=== PATIENT | female | born 1975 | race American Indian/Alaskan Native ===

== ENCOUNTER 2017-08-14 15:23 | Emergency (ER) | payer MEDICAID, OTHER ==
[2017-08-14 15:24] VITALS: BMI 25.8
[2017-08-14 16:22] LABS: HCG,QUALITATIVE URINE NEGATIVE (NEGATIVE)
[2017-08-14 16:34] LABS: SQUAMOUS EPITHIAL 1 /hpf (0-5); URINE BACTERIA RARE (<OCC); URINE BILIRUBIN NEGATIVE (NEGATIVE); URINE BLOOD 3+ (NEGATIVE); URINE CLARITY Hazy (Clear); URINE COLOR Yellow (YELLOW); URINE GLUCOSE (UA) NORMAL (Normal); URINE LEUKOCYTE ESTERASE NEG Leu/uL (Negative); URINE PROTEIN 1+ mg/dL (NEGATIVE); URINE UROBILINOGEN NORMAL mg/dL (0.2-1.0)
[2017-08-14 16:42] LABS: INFLUENZA A B NEGATIVE FOR FLU A/B (NEGATIVE)
[2017-08-14] MEDS ORDERED: Sodium Chloride 0.9% 1,000 ML IV ONE (16:42)
[2017-08-14 17:04] LABS: BASO % 0.5 % (0.0-2.0); EOS % 0.2 % (0.0-4.0); HEMOGLOBIN 11.8 g/dL (11.0-16.0); LYMPH # 0.5 K/uL (1.0-4.3); LYMPH % 13.6 % (20.0-40.0); MEAN CORPUSCULAR HEMOGLOBIN 27.3 pg (27.0-31.0); MEAN CORPUSCULAR HGB CONC 33.9 g/dL (33.0-37.0); MEAN PLATELET VOLUME 9.6 fL (7.2-11.7); MONO # 0.1 K/uL (0.0-0.8); MONO % 3.1 % (0.0-10.0); NEUT # 2.7 K/uL (1.8-7.0); NEUT % 82.6 % (50.0-75.0); RBC 4.31 Mil/uL (3.80-5.20); RED CELL DISTRIBUTION WIDTH 14.7 % (11.5-14.5); WHITE BLOOD COUNT 3.3 K/uL (4.8-10.8)
[2017-08-14 17:10] LABS: MEAN CELL VOLUME 80.5 fL (81.0-99.0)
[2017-08-14 17:20] LABS: CALCIUM 8.2 mg/dl (8.6-10.4); GFR AFRICAN-AMERICAN > 60; GFR NON-AFRICAN AMERICAN > 60; LIPASE 176 U/L (23-300)
[2017-08-14 17:21] LABS: ALBUMIN 3.9 g/dL (3.5-5.0); ALT/SGPT 191 U/L (9-52); AST/SGOT 152 U/L (14-36); BLOOD UREA NITROGEN 9 mg/dL (7-17)
--- NOTE | 2017-08-14 17:21 | C.PDOC ---
History Of Present Illness 41 yo female w/o significant PMHx come in for evaluation of fever, malaise, bodyaches for past 5-6 days. Pt sts, intermittent epigastric and LLQ pain. Pt lyn, was seen at [facility] days ago, discharged with no Rx. Pt admits, recent travel " home [facility] few weeks ago". Otherwise,p t denies lethargy, dizziness , visual changes, neck pain, rash, cough, CP, SOB, dyspnea, palpitation, wheezing, V/D, UTi sx. Ambulatory in ED, not in any apparent distress. Pt lyn, was sent from [facility] now to ED for further evaluation. Time Seen by Provider: 08/14/17 15:50 Chief Complaint (Nursing): Flu-like Symptoms History Per: Patient Onset/Duration Of Symptoms: Gradual Past Medical History Reviewed: Historical Data, Nursing Documentation, Vital Signs Vital Signs: Last Vital Signs Temp 98.6 F 08/14/17 19:00 Pulse 87 08/14/17 19:00 Resp 16 08/14/17 19:00 BP 131/73 08/14/17 19:00 Pulse Ox 97 08/14/17 19:00 - Medical History PMH: No Chronic Diseases Denies: HTN Surgical History: No Surg Hx Family History: States: Unknown Family Hx - Social History Hx Tobacco Use: No Hx Alcohol Use: No (DENIES 08/14/17) Hx Substance Use: No - Immunization History Hx Tetanus Toxoid Vaccination: No Hx Influenza Vaccination: Yes Hx Pneumococcal Vaccination: No Review Of Systems Except As Marked, All Systems Reviewed And Found Negative. Constitutional: Positive for: Fever, Chills, Weakness, Malaise. Negative for: Weight loss Eyes: Negative for: Vision Change, Redness ENT: Positive for: Throat Pain. Negative for: Ear Pain, Ear Discharge, Nose Discharge, Nose Congestion Cardiovascular: Negative for: Chest Pain, Palpitations Respiratory: Negative for: Cough, Shortness of Breath, Wheezing Gastrointestinal: Positive for: Abdominal Pain. Negative for: Nausea, Vomiting , Diarrhea Genitourinary: Negative for: Dysuria, Frequency Musculoskeletal: Negative for: Neck Pain, Back Pain Skin: Negative for: Rash Neurological: Negative for: Weakness, Numbness, Altered Mental Status, Headache , Dizziness Physical Exam - Physical Exam Appears: Well, No Acute Distress Skin: Normal Color, Warm, Dry, No Rash Head: Normacephalic Eye(s): bilateral: PERRL Ear(s): Bilateral: Normal Nose: No Flaring, No Discharge Oral Mucosa: Moist, No Drooling, No Trismus Tongue: Normal Appearing Lips: Normal Appearing Throat: Erythema (mild B/L), No Exudate, No Drooling Neck: Normal, Trachea Midline, Supple, Other ((-) meningeal sign) Lymphatic: Adenopathy (mild B/L anterior cervical) Cardiovascular: Rhythm Regular, No Murmur, No JVD Respiratory: No Decreased Breath Sounds, No Accessory Muscle Use, No Stridor, No Wheezing Gastrointestinal/Abdominal: Soft, Tenderness (mod LLQ and mild epigastric), No Distention, No Guarding, No Rebound Back: No CVA Tenderness Extremity: Normal ROM, No Deformity, No Swelling Neurological/Psych: Oriented x3, Normal Speech ED Course And Treatment - Laboratory Results Result Diagrams: 08/14/17 17:01 08/14/17 17:01 Urine POC: Negative O2 Sat by Pulse Oximetry: 100 Pulse Ox Interpretation: Normal - CT Scan/US CT abd/pelvis Other Rad Studies (CT/US): Radiology Report Reviewed CT/US Interpretation: Creator : Jolene Daly. Dictator : Geremias Silverio MD. Brick Catcher : Labourers : Geremias Silverio MD. Approver2 : Report Date : 08/14/2017 18:22:41. My Comment : . PROCEDURE: CT Abdomen and Pelvis with contrast. HISTORY: Left lower quadrant pain. Negative test (concurrent with this examination). COMPARISON: None. TECHNIQUE: Contrast dose: 100 cc Visipaque 320. Radiation dose: Total exam DLP = 508.66 mGy-cm. This CT exam was performed using one or more of the following dose reduction techniques: Automated exposure control, adjustment of the mA and/or kV according to patient size, and/or use of iterative reconstruction technique. FINDINGS: LOWER THORAX: Unremarkable. LIVER: Hepatic steatosis. No focal masses. No intrahepatic bile duct dilatation or perihepatic ascites. GALLBLADDER AND BILE DUCTS: Unremarkable. PANCREAS: Unremarkable. No gross lesion or ductal dilatation. SPLEEN: Unremarkable. ADRENALS: Unremarkable. No mass. KIDNEYS AND URETERS: Unremarkable. No hydronephrosis. No solid mass. VASCULATURE: Unremarkable. No aortic aneurysm. BOWEL: Unremarkable. No obstruction. No gross mural thickening. APPENDIX: Normal appendix. PERITONEUM: Unremarkable. No free fluid. No free air. LYMPH NODES: Unremarkable. No enlarged lymph nodes. BLADDER: Unremarkable. REPRODUCTIVE: Unremarkable. BONES: No acute fracture. OTHER FINDINGS: None. IMPRESSION: No significant or acute findings to account for/ related to the clinical presentation. Additional benign and/or incidental findings described above. Progress Note: Pt remained stable during the Ed evaluation. Pt reports mod improveemnt in sx. On re-eval, pt is afebrile, hemodynamicalys table. NOn- toxic. ENT: no acute findings. neck: Supple, (-) meningeal sign. Lungs: CTA B /L, BS equal B/L. Abd: benign, (-) guarding, (-) rebound. back: (-) CVA tenderness. Neurologicaly intact. Case discussed with , blood work and imaging results review. HIgh LFT noted, hepatitis profile- negative. CT ab/ dplevis- no acute findings. As per , pt is stable for discharge withg outpt f/u in clinic in 1-2 days. Results review and discussed with patient. Ref to F/u with Clinic in 1-2 days, return to ED at any time if any worsening or new changes. Disposition Counseled Patient/Family Regarding: Studies Performed, Diagnosis, Need For Followup - Disposition Referrals: at [facility] [Outside] Disposition: HOME/ ROUTINE Disposition Time: 18:54 Condition: STABLE Additional Instructions: FOLLOW UP WITH MEDICAL CLINIC TOMORROW FOR RE-EVALUATION. ENCOURAGE FLUIDS IBUPROFEN NEED FOR FEVER RETURN TO ED IF ANY WORSENING OR NEW CHANGES. Instructions: Fever of Unknown Origin, Liver Function Test Forms: [email or web address] ([email or web address]) - Clinical Impression Clinical Impression: Fever, Abnormal LFTs (liver function tests) Physician Patient Turnover Patient Signed Over To: Yamil Sears Handoff Comments: CT abd/pelvis, re-eval, dispo
[2017-08-14] MEDS ORDERED: Sodium Chloride 0.9% 1,000 ML ONE (17:24)
[2017-08-14] MEDS ORDERED: Iodixanol 320 MG/ML 100 ML BOTTLE IV ONE (17:40)
--- NOTE | 2017-08-14 18:39 | CT ---
PROCEDURE: CT Abdomen and Pelvis with contrast HISTORY: Left lower quadrant pain. Negative test (concurrent with this examination). COMPARISON: None. TECHNIQUE: Contrast dose: 100 cc Visipaque 320. Radiation dose: Total exam DLP = 508.66 mGy-cm. This CT exam was performed using one or more of the following dose reduction techniques: Automated exposure control, adjustment of the mA and/or kV according to patient size, and/or use of iterative reconstruction technique. FINDINGS: LOWER THORAX: Unremarkable. LIVER: Hepatic steatosis. No focal masses. No intrahepatic bile duct dilatation or perihepatic ascites. GALLBLADDER AND BILE DUCTS: Unremarkable. PANCREAS: Unremarkable. No gross lesion or ductal dilatation. SPLEEN: Unremarkable. ADRENALS: Unremarkable. No mass. KIDNEYS AND URETERS: Unremarkable. No hydronephrosis. No solid mass. VASCULATURE: Unremarkable. No aortic aneurysm. BOWEL: Unremarkable. No obstruction. No gross mural thickening. APPENDIX: Normal appendix. PERITONEUM: Unremarkable. No free fluid. No free air. LYMPH NODES: Unremarkable. No enlarged lymph nodes. BLADDER: Unremarkable. REPRODUCTIVE: Unremarkable. BONES: No acute fracture. OTHER FINDINGS: None. IMPRESSION: No significant or acute findings to account for/ related to the clinical presentation. Additional benign and/or incidental findings described above.
[2017-08-14 19:01] VITALS: BP 131/73; PULSE 87; RESP 16; TEMP 98.6
[2017-08-14 19:49] LABS: HEPATITIS B SURFACE AG Negative (NEGATIVE)
[2017-08-14 19:54] LABS: HEPATITIS A IGM NEGATIVE (NEGATIVE); HEPATITIS B CORE AB NEGATIVE (NEGATIVE)
[2017-08-14 20:06] LABS: HEPATITIS C ANTIBODY NEGATIVE (NEGATIVE)
[2017-08-15 12:11] VITALS: O2SAT 100
== END 2017-08-14 19:23 | disposition home or self-care (01) ==
LOC: C.ER 15:23
DX: R50.9 Fever, unspecified (principal); R94.5 Abnormal results of liver function studies
CPT/HCPCS: 74177; 80053; 80074; 81001; 82140; 83690; 84703; 85025; 86308; 87070; 87430; 87804; 96361; 96374; 96375; 99283; J2405; J7040; Q9967

== ENCOUNTER 2017-08-19 12:55 | Inpatient (IN) | payer MEDICAID ==
[2017-08-19 12:55] VITALS: BMI 25.8
--- NOTE | 2017-08-19 14:08 | C.PDOC ---
History Of Present Illness 41 y/o F presents from clinic with fever, chills. Patient was seen in this ED 5 days ago, work up largely negative other than elevated liver enzymes. She was seen in clinic earlier that day and the next day and then today. Upon her visit to clinic today, the physician found to the patient to have new nystagmus, general weakness, still with chills although fever resolved and feeling unsteady. The patient recently traveled from [facility]. Denies neck stiffness, photophobia, chest pain, rash. Time Seen by Provider: 08/19/17 13:15 Chief Complaint (Nursing): Medical Clearance Past Medical History Vital Signs: Last Vital Signs Temp 97.7 F 08/19/17 13:20 Pulse 86 08/19/17 13:20 Resp 18 08/19/17 13:20 BP 175/73 H 08/19/17 13:20 Pulse Ox 97 08/19/17 14:10 - Medical History PMH: Denies: HTN Family History: States: Unknown Family Hx - Social History Hx Tobacco Use: No Hx Alcohol Use: No (DENIES 08/14/17) Hx Substance Use: No - Immunization History Hx Tetanus Toxoid Vaccination: No Hx Influenza Vaccination: Yes Hx Pneumococcal Vaccination: No Review Of Systems Except As Marked, All Systems Reviewed And Found Negative. Cardiovascular: Negative for: Chest Pain Genitourinary: Negative for: Dysuria Physical Exam - Physical Exam Additional Physical Exam Comments: Gen: NAD head: NC/AT Eyes: Nystagmus ENT: MMM Neck: No rigidity Chest: No tenderness CV: Regular rate Lungs: CTA b/l Abd: Soft, NT Back: No CVA tenderness Skin: No rash Extremities: No edema Neuro: Alert, oriented x 3, CN II to XII intact, motor 5/5 x 4, sensation to light touch intact. ED Course And Treatment - Laboratory Results Result Diagrams: 08/19/17 14:09 08/19/17 14:09 O2 Sat by Pulse Oximetry: 97 Lumbar Puncture - Time Out Time Out: Side verified, Site verified, Patient ID confirmed, Sterile procedures obs. - Consent obtained Consent obtained: Written - Performed by Performed by: Mid-level Provider - Indications Indication(s): Suspected menigitis - Contraindications Contraindications: None - Patient Position Patient position: Sitting - Local Anesthetic Location: L4/L5 - Fluid Appearance Fluid Appearance: Clear - Post-procedure Post-procedure: No leak/bld from LP site, Dressing applied, Patient laid flat, Neurovascular status nml - CSF Studies CSF Studies: Cell count/diff, Glucose, Protein, LDH, culture/sensitivity, Antigens - Complications Complications: None - Patient tolerated procedure Patient tolerated procedure: Well Medical Decision Making Medical Decision Making: EKG Sinus rhythm, 52 bpm, no ST elevations CXR no consolidation. Hospitalist service saw patient in ED, will accept to their service and will contact neurology and ID for further recommendations. Disposition - Disposition Disposition: HOSPITALIZED Disposition Time: 15:23 Condition: FAIR - Clinical Impression Clinical Impression: Fever, Abnormal LFTs (liver function tests), Nystagmus
[2017-08-19 14:17] LABS: BASO # 0.1 K/uL (0.0-0.2); BASO % 0.7 % (0.0-2.0); EOS # 0.1 K/uL (0.0-0.7); EOS % 1.5 % (0.0-4.0); HEMOGLOBIN 12.1 g/dL (11.0-16.0); LYMPH # 1.6 K/uL (1.0-4.3); LYMPH % 22.4 % (20.0-40.0); MEAN CORPUSCULAR HEMOGLOBIN 27.1 pg (27.0-31.0); MEAN CORPUSCULAR HGB CONC 33.4 g/dL (33.0-37.0); MEAN PLATELET VOLUME 9.7 fL (7.2-11.7); MONO # 0.4 K/uL (0.0-0.8); MONO % 5.8 % (0.0-10.0); NEUT # 5.1 K/uL (1.8-7.0); NEUT % 69.6 % (50.0-75.0); NRBC % 0.1 % (0.0-2.0); RBC 4.46 Mil/uL (3.80-5.20); RED CELL DISTRIBUTION WIDTH 14.2 % (11.5-14.5)
[2017-08-19 14:21] LABS: WHITE BLOOD COUNT 7.3 K/uL (4.8-10.8)
[2017-08-19 14:31] LABS: INR 1.1; PROTHROMBIN TIME 12.3 SECONDS (9.7-12.2)
[2017-08-19 14:40] LABS: ALBUMIN 3.9 g/dL (3.5-5.0); ALT/SGPT 156 U/L (9-52); AST/SGOT 104 U/L (14-36); BLOOD UREA NITROGEN 10 mg/dL (7-17); CALCIUM 9.2 mg/dl (8.6-10.4); GFR AFRICAN-AMERICAN > 60; GFR NON-AFRICAN AMERICAN > 60; LIPASE 175 U/L (23-300)
--- NOTE | 2017-08-19 15:20 | RAD ---
HISTORY: chills COMPARISON: No prior. FINDINGS: LUNGS: No active pulmonary disease. PLEURA: No significant pleural effusion identified, no pneumothorax apparent. CARDIOVASCULAR: No radiographic findings to suggest acute or significant cardiovascular disease. OSSEOUS STRUCTURES: No significant abnormalities. VISUALIZED UPPER ABDOMEN: Normal. OTHER FINDINGS: None. IMPRESSION: No active disease.
[2017-08-19 15:39] LABS: FLUID TYPE SPINAL FLUID
--- NOTE | 2017-08-19 16:00 | CP.PCM.HP ---
<Dago MASPam - Last Filed: 08/19/17 16:11> History of Present Illness - History of Present Illness History of Present Illness: CC: "I feel unsteady" Patient is a 41 year old female with PMHx heart murmur who presents to the ED after being sent from the [facility] for recent history of fever and new neurological symptoms. Patient traveled to [facility] 07/26-07/29 and during trip and on initial return [place] felt normal at her baseline. Patient reports that on she began to have a fever, headache, and generalized malaise. She reports that her 12 year old daughter also had similar symptoms, but she recovered quickly. Patient went to [facility] on 08/12/17 due to continued fever and generalized weakness. Labwork done at [facility] showed low WBC count 2.2 and elevated LFTs. Patient was discharged home with supportive care. Patient presented to the [facility] at [facility] on 08/14/17 for follow up. She was referred to the ED during that encounter. Blood work done in the ED on 08/14/17 showed negative monospot, influenza, hepatitis, HIV, group A strep. LFTs were elevated but decreased as compared to studies from [facility]. Patient followed up with [facility] again on 08/15/17 with fever. Additional blood work studies were ordered at that time. Patient' s fever broke Friday08/15/17 and she reports feeling better overall since then. She reports that on Thursday 08/17 she began having blurred vision, feeling unsteady on her feet, and weakness. She also reports photophobia. She reports one episode of nausea with vomiting yesterday. She reports increased thirst for the past few days. 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 absent: Chills, Fever (was present for 6 days prior to arrival, resolved recently) - EENT Eyes: Blurred Vision, Photophobia. absent: Diplopia, Pain, Loss of Vision Nose/Mouth/Throat: absent: Nasal Congestion, Bleeding Gums, Sore Throat, Tongue Swelling - Cardiovascular Cardiovascular: absent: Chest Pain, Chest Pain at Rest, Diaphoresis, Dyspnea, Edema, Leg Edema, Lightheadedness, Orthopnea, Palpitations, Rapid Heart Rate - Respiratory Respiratory: absent: Cough, Dyspnea - Gastrointestinal Gastrointestinal: Nausea, Vomiting. absent: Abdominal Pain, Constipation, Diarrhea, Loose Stools - Genitourinary Genitourinary: absent: Difficulty Urinating, Dysuria - Musculoskeletal Musculoskeletal: absent: Back Pain, Muscle Cramps, Muscle Weakness, Stiffness - Integumentary Integumentary: absent: Bleeding Lesions, Erythema, Rash, Unusual Bruising, Jaundice - Neurological Neurological: Disequilibrium, Dizziness, Lack of Coordination. absent: Abnormal Speech, Focal Weakness, Frequent Falls, Headaches, Memory Loss, Radicular Pain, Sensory Deficit, Syncope, Tingling, Tremor, Vertigo - Endocrine Endocrine: Polydipsia. absent: Palpitations Past Patient History - Infectious Disease Hx of Infectious Diseases: None - Past Social History Smoking Status: Never Smoked - CARDIAC Hx Hypertension: No - PSYCHIATRIC Hx Substance Use: No - SURGICAL HISTORY Hx Surgeries: Yes Hx Vascular Surgery: Yes Other/Comment: Hyperhydrosis - ANESTHESIA Hx Anesthesia: Yes Hx Anesthesia Reactions: No Meds Allergies/Adverse Reactions: Allergies Allergy/AdvReac Type Severity Reaction Status Date / Time peanut Allergy ANAPHYLAXIS Verified 08/19/17 13:20 Penicillins Allergy ANAPHYLAXIS Verified 08/19/17 13:20 Physical Exam - Constitutional Appears: Non-toxic, No Acute Distress - Head Exam Head Exam: ATRAUMATIC, NORMOCEPHALIC - Eye Exam Eye Exam: EOMI, Nystagmus (horizontal) Pupil Exam: PERRL - ENT Exam ENT Exam: Mucous Membranes Moist - Neck Exam Neck exam: Positive for: Full Rom. Negative for: Lymphadenopathy, Meningismus Additional comments: Negative Budzinski sign, negative Brudzinski sign, no nuchal rigidity - Respiratory Exam Respiratory Exam: Clear to Auscultation Bilateral, NORMAL BREATHING PATTERN. absent: Rales, Rhonchi, Wheezes - Cardiovascular Exam Cardiovascular Exam: REGULAR RHYTHM, +S1, +S2 - GI/Abdominal Exam GI & Abdominal Exam: Normal Bowel Sounds, Soft. absent: Distended, Firm - Extremities Exam Extremities exam: Positive for: normal inspection. Negative for: calf tenderness, pedal edema - Back Exam Back exam: NORMAL INSPECTION. absent: CVA tenderness (L), CVA tenderness (R), paraspinal tenderness, rash noted - Neurological Exam Neurological exam: Alert, CN II-XII Intact, Oriented x3 - Expanded Neurological Exam Expanded Speech: Fluid Speech Cranial nerves: EOM's Intact: Normal, Facial Sensation: Normal Ataxia: No Cerebellar Function: Finger to Nose: Normal, Romberg: Normal Upper motor neuron: Babinski Sign: Normal, Pronator Drift: Normal Sensory exam: Lower Extremity Light Touch: Normal, Upper Extremity Light Touch: Normal Neuro motor strength exam: Left Upper Extremity: 5, Right Upper Extremity: 5, Left Lower Extremity: 5, Right Lower Extremity: 5 DTR: Achilles Tendon Left: 2+, Achilles Tendon Right: 2+, Bicep Left: 2+, Bicep Right: 2+, Brachioradialis Left: 2+, Brachioradialis Right: 2+, Patellar Left: 2 +, Patellar Right: 2+ Coma Scale Eye Opening: SPONTANEOUS Coma Scale Motor Response: OBEYS COMMANDS Coma Scale Verbal: Oriented Coma Scale Total: 15 - Psychiatric Exam Psychiatric exam: Normal Affect - Skin Skin Exam: Normal Color, Warm Additional comments: no rash, no petechiae Results - Vital Signs Recent Vital Signs: Last Vital Signs Temp 97.7 F 08/19/17 13:20 Pulse 86 08/19/17 13:20 Resp 18 08/19/17 13:20 BP 175/73 H 08/19/17 13:20 Pulse Ox 97 08/19/17 15:24 - Labs Result Diagrams: 08/19/17 14:09 08/19/17 14:09 Labs: Laboratory Results - last 24 hr 08/19/17 08/19/17 08/19/17 13:08 14:09 14:09 WBC 7.3 D RBC 4.46 Hgb 12.1 Hct 36.1 MCV 81.0 MCH 27.1 MCHC 33.4 RDW 14.2 Plt Count 375 D MPV 9.7 Neut % (Auto) 69.6 Lymph % (Auto) 22.4 Churchill % (Auto) 5.8 Eos % (Auto) 1.5 Baso % (Auto) 0.7 Neut # (Auto) 5.1 Lymph # (Auto) 1.6 Churchill # (Auto) 0.4 Eos # (Auto) 0.1 Baso # (Auto) 0.1 PT INR APTT Sodium 139 Potassium 3.3 L Chloride 95 L Carbon Dioxide 31 H Anion Gap 17 BUN 10 Creatinine 0.6 L Est GFR ( Amer) > 60 Est GFR (Non-Af Amer) > 60 POC Glucose (mg/dL) 100 Random Glucose 87 Calcium 9.2 Total Bilirubin 0.7 AST 104 H D ALT 156 H Alkaline Phosphatase 73 Total Protein 7.7 Albumin 3.9 Globulin 3.8 Albumin/Globulin Ratio 1.0 Lipase 175 Blood Type Antibody Screen 08/19/17 08/19/17 14:09 14:09 WBC RBC Hgb Hct MCV MCH MCHC RDW Plt Count MPV Neut % (Auto) Lymph % (Auto) Churchill % (Auto) Eos % (Auto) Baso % (Auto) Neut # (Auto) Lymph # (Auto) Churchill # (Auto) Eos # (Auto) Baso # (Auto) PT 12.3 H INR 1.1 APTT 28 Sodium Potassium Chloride Carbon Dioxide Anion Gap BUN Creatinine Est GFR ( Amer) Est GFR (Non-Af Amer) POC Glucose (mg/dL) Random Glucose Calcium Total Bilirubin AST ALT Alkaline Phosphatase Total Protein Albumin Globulin Albumin/Globulin Ratio Lipase Blood Type O POSITIVE Antibody Screen Negative Assessment & Plan - Assessment and Plan (Free Text) Assessment: Fever unknown origin with new neurological changes patient with 6 days history of persistent fever s/p trip to [facility] multiple clinic/ ER visits blood culture from 08/15/17 negative after 4 days, will repeat today urine culture from 08/15/17 contaminated, will repeat today chest xray with no active disease labs 08/14/17: negative hepatitis, negative HIV, negative monospot, negative influenza, negative group a strep patient with new symptoms nystagmus, lack of coordination, unsteady gait meningeal signs negative on exam neurology, Dr. Alexandra, consulted- help appreciated will check MRI w/ and w/o contrast to rule out meningitis infectious disease, Dr. Snyder, consulted- help appreciated will check CSF for [place], peripheral smear to r/o malaria, procalcitonin , lactic acid Lumbar puncture performed in ER with ER attending physician. CSF clear, non- bloody CSF studies ordered: glucose, protein, cell count, LDH, culture, [place] Elevated LFTs enzymes down-trending since initial high reading at [facility] last week GGT elevated at 241 will continue to monitor, avoid liver toxic medications hepatitis negative Elevated Blood Pressure will continue to monitor monitor on telemetry low sodium diet if pressure remains elevated will consider initiating therapy Heart murmur auscultated at clinic today will check echocardiogram Leukopenia resolved WBC now 7.3 will continue to monitor Prophylactic measure SCDs avoid chemical anticoagulation due to lumbar puncture PT droplet isolation zofran and ibuprofen prn Patient examined with attending physician. Plan discussed with attending physician. <Laith Barnes - Last Filed: 08/19/17 20:14> Results - Vital Signs Recent Vital Signs: Last Vital Signs Temp 97.5 F L 08/19/17 15:43 Pulse 61 08/19/17 19:38 Resp 16 08/19/17 15:43 BP 147/92 H 08/19/17 15:43 Pulse Ox 96 08/19/17 15:43 - Labs Result Diagrams: 08/19/17 14:09 08/19/17 14:09 Labs: Laboratory Results - last 24 hr 08/19/17 08/19/17 08/19/17 13:08 14:09 14:09 WBC 7.3 D RBC 4.46 Hgb 12.1 Hct 36.1 MCV 81.0 MCH 27.1 MCHC 33.4 RDW 14.2 Plt Count 375 D MPV 9.7 Neut % (Auto) 69.6 Lymph % (Auto) 22.4 Churchill % (Auto) 5.8 Eos % (Auto) 1.5 Baso % (Auto) 0.7 Neut # (Auto) 5.1 Lymph # (Auto) 1.6 Churchill # (Auto) 0.4 Eos # (Auto) 0.1 Baso # (Auto) 0.1 PT INR APTT Sodium 139 Potassium 3.3 L Chloride 95 L Carbon Dioxide 31 H Anion Gap 17 BUN 10 Creatinine 0.6 L Est GFR ( Amer) > 60 Est GFR (Non-Af Amer) > 60 POC Glucose (mg/dL) 100 Random Glucose 87 Calcium 9.2 Total Bilirubin 0.7 AST 104 H D ALT 156 H Alkaline Phosphatase 73 Total Protein 7.7 Albumin 3.9 Globulin 3.8 Albumin/Globulin Ratio 1.0 Lipase 175 Fluid Type CSF Volume CSF Appearance CSF WBC CSF RBC CSF Total Cell Counted CSF Lymphocytes CSF Monos/Macrophages CSF Comment CSF Glucose CSF Total Protein Blood Type Antibody Screen 08/19/17 08/19/17 08/19/17 14:09 14:09 15:37 WBC RBC Hgb Hct MCV MCH MCHC RDW Plt Count MPV Neut % (Auto) Lymph % (Auto) Churchill % (Auto) Eos % (Auto) Baso % (Auto) Neut # (Auto) Lymph # (Auto) Churchill # (Auto) Eos # (Auto) Baso # (Auto) PT 12.3 H INR 1.1 APTT 28 Sodium Potassium Chloride Carbon Dioxide Anion Gap BUN Creatinine Est GFR ( Amer) Est GFR (Non-Af Amer) POC Glucose (mg/dL) Random Glucose Calcium Total Bilirubin AST ALT Alkaline Phosphatase Total Protein Albumin Globulin Albumin/Globulin Ratio Lipase Fluid Type CSF Volume CSF Appearance CSF WBC CSF RBC CSF Total Cell Counted CSF Lymphocytes CSF Monos/Macrophages CSF Comment CSF Glucose 44 CSF Total Protein 95.0 H Blood Type O POSITIVE Antibody Screen Negative 08/19/17 15:37 WBC RBC Hgb Hct MCV MCH MCHC RDW Plt Count MPV Neut % (Auto) Lymph % (Auto) Churchill % (Auto) Eos % (Auto) Baso % (Auto) Neut # (Auto) Lymph # (Auto) Churchill # (Auto) Eos # (Auto) Baso # (Auto) PT INR APTT Sodium Potassium Chloride Carbon Dioxide Anion Gap BUN Creatinine Est GFR ( Amer) Est GFR (Non-Af Amer) POC Glucose (mg/dL) Random Glucose Calcium Total Bilirubin AST ALT Alkaline Phosphatase Total Protein Albumin Globulin Albumin/Globulin Ratio Lipase Fluid Type Spinal fluid CSF Volume 2 H CSF Appearance Clear/colorless CSF WBC 32.0 H CSF RBC 1.0 H CSF Total Cell Counted TEST NOT PERFORMED CSF Lymphocytes 85.0 H CSF Monos/Macrophages 15 H CSF Comment TEST NOT PERFORMED CSF Glucose CSF Total Protein Blood Type Antibody Screen Attending/Attestation - Attestation I have personally seen and examined this patient.: Yes I have fully participated in the care of the patient.: Yes I have reviewed all pertinent clinical information: Yes Notes (Text): Patient was seen and examined this afternoon at ER. Dr Cisse called me before she was brought in to ER. Detail history discussed with Dr Cisse and DR Loza Labs reviewed. case discussed with Dr Alexandra and DR Snyder. Plan discussed with ER physician. LP done . report discussed with DR Snyder. We will start on acyclovir. follow CSF culture and other reports I agree with the resident's documentation of the assessment and the plan
[2017-08-19] MEDS ORDERED: Potassium Chloride 20 mEq ER Tab PO ONE (16:28)
[2017-08-19 16:36] LABS: CSF APPEARANCE CLEAR/COLORLESS (CLEAR); CSF MONO/MACROPHAGE 15 % (0-0)
[2017-08-19 16:38] LABS: CSF VOLUME 2 mL (0-1)
[2017-08-19] MEDS: Dextrose 5%/0.9% NS 1,000 ML IV SCH (17:34)
[2017-08-19] MEDS ORDERED: Acyclovir 500 MG in Sodium Chloride 0.9% 100 ML IV SCH (18:00)
[2017-08-19] MEDS ORDERED: Morphine 4 MG/ML VIAL IVP STA (18:12)
--- NOTE | 2017-08-19 18:38 | CP.PCM.PN ---
Subjective - Date & Time of Evaluation Date of Evaluation: 08/19/17 Time of Evaluation: 18:15 - Subjective Subjective: I attempted to evaluate and examine the patient, but she had just left to have the MRI of her brain performed. I discussed the case with Dr. Barnes and recommended further CSF analysis as well as neuroimaging. I will follow-up after the MRI is completed and resulted tomorrow. Objective - Vital Signs/Intake and Output Vital Signs (last 24 hours): Temp Pulse Resp BP Pulse Ox 97.5 F L 76 16 147/92 H 96 08/19/17 15:43 08/19/17 15:43 08/19/17 15:43 08/19/17 15:43 08/19/17 15:43 - Medications Medications: Current Medications Dextrose/Sodium Chloride (Dextrose 5%/0.9% Ns 1000 Ml) 1,000 mls @ 100 mls/hr IV .Q10H [facility] Last Admin: 08/19/17 17:34 Dose: 100 mls/hr Acyclovir 750 mg/ Sodium (Chloride) 250 mls @ 167 mls/hr IV Q8H [facility] PRN Reason: Protocol Ibuprofen (Motrin Tab) 400 mg PO Q6 PRN PRN Reason: Fever >100.4 F Ondansetron HCl (Zofran Odt) 4 mg PO Q4 PRN PRN Reason: Nausea/Vomiting - Labs Labs: 08/19/17 14:09 08/19/17 14:09 PT 12.3 SECONDS (9.7-12.2) H 08/19/17 14:09 INR 1.1 08/19/17 14:09 APTT 28 SECONDS (21-34) 08/19/17 14:09
[2017-08-19] MEDS ORDERED: Gadodiamide 287 MG/ML VIAL (15ML) IV ONE (18:58)
--- NOTE | 2017-08-19 19:26 | MRI ---
EXAM: MR Head Without and With Intravenous Contrast CLINICAL HISTORY: 41 years old, female; Signs and symptoms; Fever; Additional info: Fever, nystagmus, R/O meningitis TECHNIQUE: Magnetic resonance images of the head/brain without and with intravenous contrast in multiple planes. CONTRAST: 15 mL of omniscan administered intravenously. COMPARISON: No relevant prior studies available. FINDINGS: Brain: Unremarkable. No mass. No hemorrhage. No acute infarct. Ventricles: Unremarkable. No ventriculomegaly. Bones/joints: Unremarkable. Sinuses: Left maxillary sinus polyps versus mucous retention cysts. No acute sinusitis. Mastoid air cells: Unremarkable as visualized. No mastoid effusion. Orbits: Unremarkable as visualized. No abnormal enhancement. IMPRESSION: No acute intracranial abnormality.
[2017-08-19 20:11] VITALS: RESP 20
--- NOTE | 2017-08-19 21:45 | CP.PCM.CON ---
History of Present Illness - History of Present Illness History of Present Illness: dictated Past Patient History - Infectious Disease Hx of Infectious Diseases: None - Past Medical History & Family History Past Medical History?: No - Past Social History Smoking Status: Never Smoked - CARDIAC Hx Hypertension: No - MUSCULOSKELETAL/RHEUMATOLOGICAL Hx Falls: No - PSYCHIATRIC Hx Substance Use: No - SURGICAL HISTORY Hx Surgeries: Yes Hx Vascular Surgery: Yes Other/Comment: Hyperhydrosis - ANESTHESIA Hx Anesthesia: Yes Hx Anesthesia Reactions: No Hx Malignant Hyperthermia: No Has any member of the family had a problem w/ anesthesia?: No Meds Allergies/Adverse Reactions: Allergies Allergy/AdvReac Type Severity Reaction Status Date / Time peanut Allergy ANAPHYLAXIS Verified 08/19/17 13:20 Penicillins Allergy ANAPHYLAXIS Verified 08/19/17 13:20 - Medications Medications: Current Medications Dextrose/Sodium Chloride (Dextrose 5%/0.9% Ns 1000 Ml) 1,000 mls @ 100 mls/hr IV .Q10H [facility] Last Admin: 08/19/17 17:34 Dose: 100 mls/hr Acyclovir 750 mg/ Sodium (Chloride) 250 mls @ 167 mls/hr IV Q8H GABY PRN Reason: Protocol Last Admin: 08/19/17 20:44 Dose: 167 mls/hr Ibuprofen (Motrin Tab) 400 mg PO Q6 PRN PRN Reason: Fever >100.4 F Last Admin: 08/19/17 20:43 Dose: 400 mg Ondansetron HCl (Zofran Odt) 4 mg PO Q4 PRN PRN Reason: Nausea/Vomiting Last Admin: 08/19/17 20:43 Dose: 4 mg Results - Vital Signs Recent Vital Signs: Last Vital Signs Temp 98.5 F 08/19/17 16:50 Pulse 61 08/19/17 20:13 Resp 20 08/19/17 16:50 BP 128/85 08/19/17 16:50 Pulse Ox 98 08/19/17 16:50 - Labs Result Diagrams: 08/19/17 14:09 08/19/17 14:09 Labs: Laboratory Results - last 24 hr 08/19/17 08/19/17 08/19/17 13:08 14:09 14:09 WBC 7.3 D RBC 4.46 Hgb 12.1 Hct 36.1 MCV 81.0 MCH 27.1 MCHC 33.4 RDW 14.2 Plt Count 375 D MPV 9.7 Neut % (Auto) 69.6 Lymph % (Auto) 22.4 [place] % (Auto) 5.8 Eos % (Auto) 1.5 Baso % (Auto) 0.7 Neut # (Auto) 5.1 Lymph # (Auto) 1.6 [place] # (Auto) 0.4 Eos # (Auto) 0.1 Baso # (Auto) 0.1 PT INR APTT Sodium 139 Potassium 3.3 L Chloride 95 L Carbon Dioxide 31 H Anion Gap 17 BUN 10 Creatinine 0.6 L Est GFR ( Amer) > 60 Est GFR (Non-Af Amer) > 60 POC Glucose (mg/dL) 100 Random Glucose 87 Lactic Acid Calcium 9.2 Total Bilirubin 0.7 AST 104 H D ALT 156 H Alkaline Phosphatase 73 Total Protein 7.7 Albumin 3.9 Globulin 3.8 Albumin/Globulin Ratio 1.0 Lipase 175 Fluid Type CSF Volume CSF Appearance CSF WBC CSF RBC CSF Total Cell Counted CSF Lymphocytes CSF Monos/Macrophages CSF Comment CSF Glucose CSF Total Protein Blood Type Antibody Screen 08/19/17 08/19/17 08/19/17 14:09 14:09 15:37 WBC RBC Hgb Hct MCV MCH MCHC RDW Plt Count MPV Neut % (Auto) Lymph % (Auto) [place] % (Auto) Eos % (Auto) Baso % (Auto) Neut # (Auto) Lymph # (Auto) [place] # (Auto) Eos # (Auto) Baso # (Auto) PT 12.3 H INR 1.1 APTT 28 Sodium Potassium Chloride Carbon Dioxide Anion Gap BUN Creatinine Est GFR ( Amer) Est GFR (Non-Af Amer) POC Glucose (mg/dL) Random Glucose Lactic Acid Calcium Total Bilirubin AST ALT Alkaline Phosphatase Total Protein Albumin Globulin Albumin/Globulin Ratio Lipase Fluid Type CSF Volume CSF Appearance CSF WBC CSF RBC CSF Total Cell Counted CSF Lymphocytes CSF Monos/Macrophages CSF Comment CSF Glucose 44 CSF Total Protein 95.0 H Blood Type O POSITIVE Antibody Screen Negative 08/19/17 08/19/17 15:37 20:05 WBC RBC Hgb Hct MCV MCH MCHC RDW Plt Count MPV Neut % (Auto) Lymph % (Auto) [place] % (Auto) Eos % (Auto) Baso % (Auto) Neut # (Auto) Lymph # (Auto) [place] # (Auto) Eos # (Auto) Baso # (Auto) PT INR APTT Sodium Potassium Chloride Carbon Dioxide Anion Gap BUN Creatinine Est GFR ( Amer) Est GFR (Non-Af Amer) POC Glucose (mg/dL) Random Glucose Lactic Acid 1.1 Calcium Total Bilirubin AST ALT Alkaline Phosphatase Total Protein Albumin Globulin Albumin/Globulin Ratio Lipase Fluid Type Spinal fluid CSF Volume 2 H CSF Appearance Clear/colorless CSF WBC 32.0 H CSF RBC 1.0 H CSF Total Cell Counted TEST NOT PERFORMED CSF Lymphocytes 85.0 H CSF Monos/Macrophages 15 H CSF Comment TEST NOT PERFORMED CSF Glucose CSF Total Protein Blood Type Antibody Screen
[2017-08-20] MEDS: Dextrose 5%/0.9% NS 1,000 ML IV SCH ×3 (00:30→21:15)
[2017-08-20 02:48] LABS: HCG,QUALITATIVE URINE NEGATIVE (NEGATIVE)
[2017-08-20 03:19] LABS: URINE BILIRUBIN NEGATIVE (NEGATIVE); URINE BLOOD NEGATIVE (NEGATIVE); URINE CLARITY Clear (Clear); URINE COLOR YELLOW (YELLOW); URINE GLUCOSE (UA) NEGATIVE (Normal); URINE LEUKOCYTE ESTERASE NEGATIVE Leu/uL (Negative); URINE PROTEIN NEGATIVE (NEGATIVE); URINE UROBILINOGEN Normal mg/dL (0.2-1.0)
--- NOTE | 2017-08-20 07:35 | CON ---
DATE: INFECTIOUS DISEASE CONSULTREQUESTING PHYSICIAN: Rey Barnes MD HISTORY OF PRESENT ILLNESS: This patient is a 41-year-old female. She has a history of heart murmur. She takes no medications at home. She was seen by me on request for infectious disease consult and the patient was in isolation when I saw her. This patient tells me that she was absolutely fine a week ago. She went to [facility] from 07/26/2017 to 07/29/2017, and during the trip, she was fine, came normal, had no problems. On 08/10/2017, which is Friday, she was found to have some stiffness in her body and next day, she went to work. She was having fever, headache, and malaise and Friday night she ended up going to emergency room, and in the emergency room, they gave her just Tylenol and she spend all night there. Around 4 o'clock, she comes home and she was very tired. On Friday, she was not able to go work and was feeling very very tired. , she was still continuing to have fevers, was seen in the clinic, and she has had lab work also in [facility] as well as in the [facility] at [facility] on 08/14/2017 and followed up. She has had workups done, and yesterday, she vomited. She did have fever, which broke on Friday she says, and she was having some nystagmus this morning along with unsteadiness on her feet and weakness, and she was sent here. She states her fever, however, has stopped and she had only one vomiting yesterday. She states she is feeling little better, but she feels very unsteady on her feet and has had increased spells and also complains of migraine like headaches. She states she used to get it when she was a teenager, but not any more, but now it seems to have come back. PAST MEDICAL HISTORY: Significant for heart murmur she states, and also for vascular procedures which were done for hyperhidrosis in both axillary areas, she showed me the scars. MEDICATIONS: She was taking ibuprofen 400 mg p.r.n. FAMILY HISTORY: Mother has diabetes and hypertension. Her aunt and cousin of breast cancer. SOCIAL HISTORY: She drinks on average three glasses of wine per month. Denies any drugs. Denies any tobacco abuse. 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 ALLERGIES: SHE IS ALLERGIC TO PENICILLIN, IT CAUSES THROAT TIGHTNESS; AND SHE IS ALLERGIC TO PEANUTS WHICH CAUSES ANAPHYLAXIS. REVIEW OF SYSTEMS: She feels malaise. No chills now. No fevers. Fever was present which broke on Friday from Friday on, and she does complain of some blurred vision and photophobia, the light was bothering her a lot yesterday she states, and today also a little bit. She denies any double vision. Denies any pain, and she does have some redness in her right eye. Denies any nasal congestion. No sore throat. No cough. No tongue swelling. No chest pain. No shortness of breath, no cough. She did have one vomiting and nausea yesterday, but otherwise, she denied any abdominal pain. No constipation. No diarrhea. No urinary symptoms, no dysuria. She denies any back pain. She did have some headache, which was more on one side and denies any stiffness now, but she states the whole thing started with the stiffness. She states she started to have body being stiff and denied any bleeding problems and does complain of having lack of coordination and dysequilibrium, and denies any abnormal fall or any insect bites or speech problems. No syncope. She denies room spinning. She did have polydipsia. Denies any palpitations. No skin infections and previous surgeries for hyperhidrosis. She is allergic to penicillin. PHYSICAL EXAMINATION: VITAL SIGNS: We find her temperature here from the time she has been here, she had a high blood pressure. She was sent from the clinic today because of nystagmus and generalized weakness and lack of balance. On examination, T-max 98.5, pulse is 73, blood pressure is 128/85, respirations are 20. HEENT: Head is atraumatic and normocephalic. Pupils are reacting to light. Right eye has some redness present. There is horizontal nystagmus. NECK: Supple. Neck movements are unremarkable. LUNGS: Clear. No crackles or rales present. HEART: S1, S2 regular. ABDOMEN: Soft. Nontender. No guarding. No rigidity present. EXTREMITIES: No edema, clubbing or cyanosis. NEUROLOGIC: Strength and motor power appears to be present, but unable to check her gait at this time. Negative Kernig's and Brudzinski's sign noted and no nuchal rigidity, but she has unsteady gait and nystagmus eye symptoms, and history of travel. LABORATORY DATA: White count is 7.3, hemoglobin 12.1, hematocrit 36.1, platelet count is 375. Potassium is 3.3, which needs to be supplemented. BUN 10, creatinine 0.6, and at that time, it was unclear the etiology, patient underwent an MRI. She also had an LP since, and all her previous labs showed that she had LFTs high, and she has had blood cultures which were negative. She had one blood culture on 08/15 which was negative. She has a urine culture, which is 10,000 to 50,000. She had a CSF which is pending at this time, and LP results came back saying that wbc 32, rbc 1, lymphocytes 85, monos of 15, glucose 44, total protein is 95. 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 Chest x-ray was negative. Also, the patient is started on acyclovir for now. We will see what the neurologist make out of all this, and we will monitor her. He tells her gait and her eye symptoms seems to show some improvement, and we have sent for viral cultures and we will follow. Marina Snyder MD
[2017-08-20 08:01] LABS: BASO # 0.1 K/uL (0.0-0.2); BASO % 0.8 % (0.0-2.0); EOS # 0.1 K/uL (0.0-0.7); EOS % 1.9 % (0.0-4.0); LYMPH # 2.1 K/uL (1.0-4.3); LYMPH % 33.1 % (20.0-40.0); MEAN CELL VOLUME 80.7 fL (81.0-99.0); MEAN CORPUSCULAR HEMOGLOBIN 27.6 pg (27.0-31.0); MEAN CORPUSCULAR HGB CONC 34.2 g/dL (33.0-37.0); MEAN PLATELET VOLUME 10.2 fL (7.2-11.7); MONO # 0.5 K/uL (0.0-0.8); MONO % 7.5 % (0.0-10.0); NEUT # 3.6 K/uL (1.8-7.0); NEUT % 56.7 % (50.0-75.0); NRBC % 0.1 % (0.0-2.0); RBC 3.99 Mil/uL (3.80-5.20); RED CELL DISTRIBUTION WIDTH 14.8 % (11.5-14.5); WHITE BLOOD COUNT 6.4 K/uL (4.8-10.8)
[2017-08-20 08:11] LABS: ALBUMIN 3.2 g/dL (3.5-5.0); ALT/SGPT 166 U/L (9-52); AST/SGOT 105 U/L (14-36); BLOOD UREA NITROGEN 8 mg/dL (7-17); CALCIUM 8.4 mg/dl (8.6-10.4); GFR AFRICAN-AMERICAN > 60; GFR NON-AFRICAN AMERICAN > 60
[2017-08-20] MEDS ORDERED: Aritificial Tears (15ml) OU PRN (10:25)
--- NOTE | 2017-08-20 13:17 | CP.PCM.CON ---
History of Present Illness - History of Present Illness History of Present Illness: Ms. Chawla is a 41-year-old woman with a past medical history of heart murmur who was sent to the ED by her physician for recent history of fever, headache, generalized peripheral tingling and weakness. According to the history, the patient traveled to [facility] 07/26-07/29 and during trip and on initial return to [place] felt normal at her baseline. On Friday, she developed fever, headache , and generalized malaise. Her 12 year old daughter also had similar symptoms, but she recovered quickly. She went to [facility] with these symptoms on Saturday 08/12 and labwork done demonstrated low WBC count 2.2 and elevated LFTs. She was sent home with supportive care and outpatient labs. On 08/14 she came back to the ED and labs showed negative monospot, influenza, hepatitis, HIV, group A strep. An LP was done the night before and results showed elevated WBC to 32, predominantly lymphocitic with elevated protein. She was started on acyclovir and HSV PCR is pending. Currently, she complains of a mild headache, denies neck pain, weakness, sensory changes, photophobia, phonophobia, nausea, vomiting. She has not been fever for the last 24 hours. Review of Systems - Review of Systems All systems: reviewed and no additional remarkable complaints except Past Patient History - Infectious Disease Hx of Infectious Diseases: None - Past Medical History & Family History Past Medical History?: No - Past Social History Smoking Status: Never Smoked - CARDIAC Hx Cardiac Disorders: Yes - MUSCULOSKELETAL/RHEUMATOLOGICAL Hx Falls: No - PSYCHIATRIC Hx Substance Use: No - SURGICAL HISTORY Hx Surgeries: Yes Hx Vascular Surgery: Yes Other/Comment: Hyperhydrosis - ANESTHESIA Hx Anesthesia: Yes Hx Anesthesia Reactions: No Hx Malignant Hyperthermia: No Has any member of the family had a problem w/ anesthesia?: No Meds Allergies/Adverse Reactions: Allergies Allergy/AdvReac Type Severity Reaction Status Date / Time peanut Allergy ANAPHYLAXIS Verified 08/19/17 13:20 Penicillins Allergy ANAPHYLAXIS Verified 08/19/17 13:20 - Medications Medications: Current Medications Artificial Tears (Artificial Tears) 1 ml OU Q4 PRN PRN Reason: Dry eyes Dextrose/Sodium Chloride (Dextrose 5%/0.9% Ns 1000 Ml) 1,000 mls @ 100 mls/hr IV .Q10H [facility] Last Admin: 08/20/17 10:13 Dose: 100 mls/hr Acyclovir 750 mg/ Sodium (Chloride) 250 mls @ 167 mls/hr IV Q8H [facility]Y PRN Reason: Protocol Last Admin: 08/20/17 10:07 Dose: 167 mls/hr Ibuprofen (Motrin Tab) 400 mg PO Q6 PRN PRN Reason: Fever >100.4 F Last Admin: 08/20/17 10:12 Dose: 400 mg Ondansetron HCl (Zofran Odt) 4 mg PO Q4 PRN PRN Reason: Nausea/Vomiting Last Admin: 08/19/17 20:43 Dose: 4 mg Physical Exam - Constitutional Appears: Well - Head Exam Head Exam: ATRAUMATIC, NORMAL INSPECTION, NORMOCEPHALIC - Eye Exam Eye Exam: EOMI, Normal appearance, PERRL - ENT Exam ENT Exam: Mucous Membranes Moist, Normal Exam - GI/Abdominal Exam GI & Abdominal Exam: Normal Bowel Sounds, Soft. absent: Tenderness - Rectal Exam Rectal Exam: Deferred - Neurological Exam Neurological exam: Alert, CN II-XII Intact, Normal Gait, Oriented x3, Reflexes Normal - Psychiatric Exam Psychiatric exam: Normal Affect, Normal Mood Results - Vital Signs Recent Vital Signs: Last Vital Signs Temp 98.0 F 08/20/17 08:52 Pulse 62 08/20/17 08:52 Resp 20 08/20/17 08:52 BP 138/88 08/20/17 08:52 Pulse Ox 96 08/20/17 08:52 - Labs Result Diagrams: 08/20/17 07:20 08/20/17 07:20 Labs: Laboratory Results - last 24 hr 08/19/17 08/19/17 08/19/17 13:08 14:09 14:09 WBC 7.3 D RBC 4.46 Hgb 12.1 Hct 36.1 MCV 81.0 MCH 27.1 MCHC 33.4 RDW 14.2 Plt Count 375 D MPV 9.7 Neut % (Auto) 69.6 Lymph % (Auto) 22.4 [place] % (Auto) 5.8 Eos % (Auto) 1.5 Baso % (Auto) 0.7 Neut # (Auto) 5.1 Lymph # (Auto) 1.6 [place] # (Auto) 0.4 Eos # (Auto) 0.1 Baso # (Auto) 0.1 PT INR APTT Sodium 139 Potassium 3.3 L Chloride 95 L Carbon Dioxide 31 H Anion Gap 17 BUN 10 Creatinine 0.6 L Est GFR ( Amer) > 60 Est GFR (Non-Af Amer) > 60 POC Glucose (mg/dL) 100 Random Glucose 87 Lactic Acid Calcium 9.2 Total Bilirubin 0.7 AST 104 H D ALT 156 H Alkaline Phosphatase 73 Total Protein 7.7 Albumin 3.9 Globulin 3.8 Albumin/Globulin Ratio 1.0 Lipase 175 Procalcitonin Urine Color Urine Clarity Urine pH Ur Specific [place] Urine Protein Urine Glucose (UA) Urine Ketones Urine Blood Urine Nitrate Urine Bilirubin Urine Urobilinogen Ur Leukocyte Esterase Urine WBC (Auto) Urine RBC (Auto) Urine HCG, Qual Fluid Type CSF Volume CSF Appearance CSF WBC CSF RBC CSF Total Cell Counted CSF Lymphocytes CSF Monos/Macrophages CSF Comment CSF Glucose CSF Total Protein Blood Type Antibody Screen 08/19/17 08/19/17 08/19/17 14:09 14:09 15:37 WBC RBC Hgb Hct MCV MCH MCHC RDW Plt Count MPV Neut % (Auto) Lymph % (Auto) [place] % (Auto) Eos % (Auto) Baso % (Auto) Neut # (Auto) Lymph # (Auto) [place] # (Auto) Eos # (Auto) Baso # (Auto) PT 12.3 H INR 1.1 APTT 28 Sodium Potassium Chloride Carbon Dioxide Anion Gap BUN Creatinine Est GFR ( Amer) Est GFR (Non-Af Amer) POC Glucose (mg/dL) Random Glucose Lactic Acid Calcium Total Bilirubin AST ALT Alkaline Phosphatase Total Protein Albumin Globulin Albumin/Globulin Ratio Lipase Procalcitonin Urine Color Urine Clarity Urine pH Ur Specific [place] Urine Protein Urine Glucose (UA) Urine Ketones Urine Blood Urine Nitrate Urine Bilirubin Urine Urobilinogen Ur Leukocyte Esterase Urine WBC (Auto) Urine RBC (Auto) Urine HCG, Qual Fluid Type CSF Volume CSF Appearance CSF WBC CSF RBC CSF Total Cell Counted CSF Lymphocytes CSF Monos/Macrophages CSF Comment CSF Glucose 44 CSF Total Protein 95.0 H Blood Type O POSITIVE Antibody Screen Negative 08/19/17 08/19/17 08/19/17 15:37 20:02 20:05 WBC RBC Hgb Hct MCV MCH MCHC RDW Plt Count MPV Neut % (Auto) Lymph % (Auto) [place] % (Auto) Eos % (Auto) Baso % (Auto) Neut # (Auto) Lymph # (Auto) [place] # (Auto) Eos # (Auto) Baso # (Auto) PT INR APTT Sodium Potassium Chloride Carbon Dioxide Anion Gap BUN Creatinine Est GFR ( Amer) Est GFR (Non-Af Amer) POC Glucose (mg/dL) Random Glucose Lactic Acid 1.1 Calcium Total Bilirubin AST ALT Alkaline Phosphatase Total Protein Albumin Globulin Albumin/Globulin Ratio Lipase Procalcitonin < 0.05 L Urine Color Urine Clarity Urine pH Ur Specific [place] Urine Protein Urine Glucose (UA) Urine Ketones Urine Blood Urine Nitrate Urine Bilirubin Urine Urobilinogen Ur Leukocyte Esterase Urine WBC (Auto) Urine RBC (Auto) Urine HCG, Qual Fluid Type Spinal fluid CSF Volume 2 H CSF Appearance Clear/colorless CSF WBC 32.0 H CSF RBC 1.0 H CSF Total Cell Counted TEST NOT PERFORMED CSF Lymphocytes 85.0 H CSF Monos/Macrophages 15 H CSF Comment TEST NOT PERFORMED CSF Glucose CSF Total Protein Blood Type Antibody Screen 08/20/17 08/20/17 08/20/17 02:00 07:20 07:20 WBC 6.4 RBC 3.99 Hgb 11.0 Hct 32.2 L MCV 80.7 L MCH 27.6 MCHC 34.2 RDW 14.8 H Plt Count 362 MPV 10.2 Neut % (Auto) 56.7 Lymph % (Auto) 33.1 [place] % (Auto) 7.5 Eos % (Auto) 1.9 Baso % (Auto) 0.8 Neut # (Auto) 3.6 Lymph # (Auto) 2.1 [place] # (Auto) 0.5 Eos # (Auto) 0.1 Baso # (Auto) 0.1 PT INR APTT Sodium 141 Potassium 3.8 Chloride 103 Carbon Dioxide 26 Anion Gap 15 BUN 8 Creatinine 0.6 L Est GFR ( Amer) > 60 Est GFR (Non-Af Amer) > 60 POC Glucose (mg/dL) Random Glucose 109 H Lactic Acid Calcium 8.4 L Total Bilirubin 0.7 AST 105 H ALT 166 H Alkaline Phosphatase 60 Total Protein 6.4 Albumin 3.2 L Globulin 3.2 Albumin/Globulin Ratio 1.0 Lipase Procalcitonin Urine Color Yellow Urine Clarity Clear Urine pH 7.0 Ur Specific [place] 1.009 Urine Protein Negative Urine Glucose (UA) Negative Urine Ketones Negative Urine Blood Negative Urine Nitrate Negative Urine Bilirubin Negative Urine Urobilinogen Normal Ur Leukocyte Esterase Negative Urine WBC (Auto) 2 Urine RBC (Auto) < 1 Urine HCG, Qual Negative Fluid Type CSF Volume CSF Appearance CSF WBC CSF RBC CSF Total Cell Counted CSF Lymphocytes CSF Monos/Macrophages CSF Comment CSF Glucose CSF Total Protein Blood Type Antibody Screen Assessment & Plan (1) Viral meningitis Assessment and Plan: Continue acyclovir for now until HSV PCR is resulted. If negative, may D/C acyclovir. ID consult is recommended. There are still labs pending on CSF. MRI is normal. PT/OT is recommended for evaluation and possible treatment. Continue supportive care. Will give 10 mg decadron IV once for the headache/ inflammatory changes. Thank you. Status: Acute Priority: High
--- NOTE | 2017-08-20 14:23 | CP.PCM.PN ---
Subjective - Date & Time of Evaluation Date of Evaluation: 08/20/17 Time of Evaluation: 02:00 - Subjective Subjective: dictated Objective - Vital Signs/Intake and Output Vital Signs (last 24 hours): Temp Pulse Resp BP Pulse Ox 98.0 F 62 20 138/88 96 08/20/17 08:52 08/20/17 08:52 08/20/17 08:52 08/20/17 08:52 08/20/17 08:52 Intake and Output: 08/20/17 08/20/17 06:59 18:59 Intake Total 800 Balance 800 - Medications Medications: Current Medications Artificial Tears (Artificial Tears) 1 ml OU Q4 PRN PRN Reason: Dry eyes Dextrose/Sodium Chloride (Dextrose 5%/0.9% Ns 1000 Ml) 1,000 mls @ 100 mls/hr IV .[facility]10H [facility] Last Admin: 08/20/17 10:13 Dose: 100 mls/hr Acyclovir 750 mg/ Sodium (Chloride) 250 mls @ 167 mls/hr IV Q8H [facility] PRN Reason: Protocol Last Admin: 08/20/17 10:07 Dose: 167 mls/hr Ibuprofen (Motrin Tab) 400 mg PO Q6 PRN PRN Reason: Fever >100.4 F Last Admin: 08/20/17 10:12 Dose: 400 mg Ondansetron HCl (Zofran Odt) 4 mg PO Q4 PRN PRN Reason: Nausea/Vomiting Last Admin: 08/19/17 20:43 Dose: 4 mg - Labs Labs: 08/20/17 07:20 08/20/17 07:20 PT 12.3 SECONDS (9.7-12.2) H 08/19/17 14:09 INR 1.1 08/19/17 14:09 APTT 28 SECONDS (21-34) 08/19/17 14:09
--- NOTE | 2017-08-20 14:48 | CP.PCM.PN ---
<SudeepSonidoPam - Last Filed: 08/20/17 15:09> Subjective - Date & Time of Evaluation Date of Evaluation: 08/20/17 Time of Evaluation: 07:10 - Subjective Subjective: Patient seen and examined at bedside. No acute events overnight. Patient resting comfortably in bed. She complains of continued generalized headache. She also admits to dizziness, nasal congestion, and dry eyes. Patient denies fever, chills, changes in vision and hearing, neck pain, chest pain, SOB, palpitations, abdominal pain, nausea, vomiting, diarrhea, constipation, and calf pain. Objective - Vital Signs/Intake and Output Vital Signs (last 24 hours): Temp Pulse Resp BP Pulse Ox 98.0 F 62 20 138/88 96 08/20/17 08:52 08/20/17 08:52 08/20/17 08:52 08/20/17 08:52 08/20/17 08:52 Intake and Output: 08/20/17 08/20/17 06:59 18:59 Intake Total 800 Balance 800 - Medications Medications: Current Medications Artificial Tears (Artificial Tears) 1 ml OU Q4 PRN PRN Reason: Dry eyes Dextrose/Sodium Chloride (Dextrose 5%/0.9% Ns 1000 Ml) 1,000 mls @ 100 mls/hr IV .Q10H [facility] Last Admin: 08/20/17 10:13 Dose: 100 mls/hr Acyclovir 750 mg/ Sodium (Chloride) 250 mls @ 167 mls/hr IV Q8H GABY PRN Reason: Protocol Last Admin: 08/20/17 10:07 Dose: 167 mls/hr Ibuprofen (Motrin Tab) 400 mg PO Q6 PRN PRN Reason: Fever >100.4 F Last Admin: 08/20/17 10:12 Dose: 400 mg Ondansetron HCl (Zofran Odt) 4 mg PO Q4 PRN PRN Reason: Nausea/Vomiting Last Admin: 08/19/17 20:43 Dose: 4 mg - Labs Labs: 08/20/17 07:20 08/20/17 07:20 PT 12.3 SECONDS (9.7-12.2) H 08/19/17 14:09 INR 1.1 08/19/17 14:09 APTT 28 SECONDS (21-34) 08/19/17 14:09 - Constitutional Appears: Non-toxic, No Acute Distress - Head Exam Head Exam: ATRAUMATIC, NORMAL INSPECTION, NORMOCEPHALIC - Eye Exam Eye Exam: Conjunctival injection, EOMI, Normal appearance, PERRL - ENT Exam ENT Exam: Mucous Membranes Moist - Neck Exam Neck Exam: Full ROM, Normal Inspection. absent: Meningismus - Respiratory Exam Respiratory Exam: Clear to Ausculation Bilateral, NORMAL BREATHING PATTERN - Cardiovascular Exam Cardiovascular Exam: REGULAR RHYTHM, +S1, +S2. absent: Murmur - GI/Abdominal Exam GI & Abdominal Exam: Soft, Normal Bowel Sounds. absent: Tenderness - Extremities Exam Extremities Exam: Normal Capillary Refill, Normal Inspection. absent: Calf Tenderness, Pedal Edema - Back Exam Back Exam: NORMAL INSPECTION. absent: rash noted - Neurological Exam Neurological Exam: Alert, Awake, Oriented x3 - Psychiatric Exam Psychiatric exam: Normal Affect, Normal Mood - Skin Skin Exam: Dry, Intact, Normal Color, Warm. absent: Rash Assessment and Plan - Assessment and Plan (Free Text) Plan: Headache with Fever unknown origin * Per admission note, new symptoms including nystagmus, lack of coordination, unsteady gait * ID consulted (Dr. Snyder) * Neuro consulted (Dr. Alexandra) * suggests continuing acyclovir until HSV comes back negative * gave one dose of decadron 10 mg for headache * MRI Brain: unremarkable * CSF studies: * Appearance: clear/colorless * WBC: 32 (H) * RBC: 1 (H) * Lymphocytes: 85 (H) * Monos/Macrophages: 15 (H) * Glucose: 44 * Total Protein: 95 (H) * Cell count/Diff: pending * LDH: pending * [place] Ab/RNA: pending * Enterovirus: pending * HSV 2 IgM: pending * HSV IgM, Ab: pending * HTLV I/II Ab: pending * Procalcitonin: <0.05 * f/u lactate * f/u peripheral smear to r/o malaria * f/u blood culture * f/u urine culture * chest xray with no active disease * Labs 08/14/17: negative hepatitis, negative HIV, negative monospot, negative influenza, negative group a strep * PT/OT Meds/Fluids * Acyclovir 750 mg IV Q8 * D5/NS @100cc/h Elevated LFTs * Hep panel negative * GGT elevated at 241 * T Bili WNL * Will continue to monitor, avoid liver toxic medications Dry Eyes * Artificial tears PRN History of Heart murmur * Not appreciated on exam * f/u echocardiogram Prophylactic measure * SCDs * avoid chemical anticoagulation due to lumbar puncture * droplet isolation * zofran and ibuprofen prn <MollyLaith - Last Filed: 08/22/17 17:12> Objective - Vital Signs/Intake and Output Vital Signs (last 24 hours): Temp Pulse Resp BP Pulse Ox 98.0 F 58 L 20 142/95 H 100 08/21/17 08:34 08/21/17 08:34 08/21/17 08:34 08/21/17 08:34 08/21/17 08:34 - Labs Labs: 08/21/17 07:46 08/21/17 07:46 PT 12.3 SECONDS (9.7-12.2) H 08/19/17 14:09 INR 1.1 08/19/17 14:09 APTT 28 SECONDS (21-34) 08/19/17 14:09 Attending/Attestation - Attestation I have personally seen and examined this patient.: Yes I have fully participated in the care of the patient.: Yes I have reviewed all pertinent clinical information, including history, physical exam and plan: Yes Notes (Text): Patient was seen and examined by me 1.Fever and headache-s/p LP s/p neurological symptoms spoke to Dr alexandra and Dr Snyder continue acyclovir for possible viral meningitis 2.Transaminitis-monitor HIV and hep negative Assessment and the plan discussed with the resident I agree with the documentation
--- NOTE | 2017-08-20 17:25 | CARD ---
APPROVED REPORT EXAM: Two-dimensional and M-mode echocardiogram with Doppler and color Doppler. Other Information Quality : GoodRhythm : INDICATION Murmur 2D DIMENSIONS IVSd1.1 (0.7-1.1cm)LVDd3.9 (3.9-5.9cm) PWd1.1 (0.7-1.1cm)LVDs2.5 (2.5-4.0cm) FS (%) 35.3 %LVEF (%)65.2 (>50%) M-Mode DIMENSIONS RVDd2.46 (2.1-3.2cm)Left Atrium (MM)4.12 (2.5-4.0cm) IVSd1.03 (0.7-1.1cm)Aortic Root2.39 (2.2-3.7cm) LVDd4.46 (4.0-5.6cm)Aortic Cusp Exc.1.77 (1.5-2.0cm) PWd1.06 (0.7-1.1cm)FS (%) 41 % LVDs2.64 (2.0-3.8cm)LVEF (%)72 (>50%) Mitral Valve MV E Hwvrxavs07.2cm/sMV A Mhhdwasd21.9cm/sE/A ratio1.9 TDI E/Lateral E'0.0E/Medial E'0.0 Tricuspid Valve TR Peak [id number]/sTR Peak Gr.[id number] LEFT VENTRICLE The left ventricle is normal size. There is normal left ventricular wall thickness. The left ventricular function is normal. The left ventricular ejection fraction is within the normal range. There is normal LV segmental wall motion. The left ventricular diastolic function is normal. RIGHT VENTRICLE The right ventricle is borderline dilated. There is normal right ventricular wall thickness. The right ventricular systolic function is normal. ATRIA The left atrium size is normal. The right atrium size is normal. AORTIC VALVE The aortic valve is normal in structure. No aortic regurgitation is present. There is no aortic valvular stenosis. MITRAL VALVE The mitral valve is normal in structure. There is no evidence of mitral valve prolapse. TRICUSPID VALVE The tricuspid valve is normal in structure. There is trace tricuspid regurgitation. PULMONIC VALVE There is mild pulmonic valvular regurgitation. GREAT VESSELS The aortic root is normal in size. The IVC is normal in size and collapses >50% with inspiration. PERICARDIAL EFFUSION There is a trace loculated posterior pericardial effusion. <Conclusion> The left ventricle is normal size. There is normal left ventricular wall thickness. The left ventricular function is normal. The left ventricular ejection fraction is within the normal range. There is normal LV segmental wall motion. The left ventricular diastolic function is normal. There is mild pulmonic valvular regurgitation. There is a trace loculated posterior pericardial effusion.
--- NOTE | 2017-08-20 20:52 | CARD ---
APPROVED REPORT EKG Measurement Heart [id number] <Conclusion> Sinus bradycardia Nonspecific ST and T wave abnormality Abnormal ECG
--- NOTE | 2017-08-21 03:01 | PN ---
DATE: INFECTIOUS DISEASE FOLLOWUP NOTESUBJECTIVE: I went to see her. She was resting, and she complained still of headaches but she says she was feeling little better. Denied any chills. No change in vision, and no shortness of breath. No chest pain. No abdominal pain. No rash is present. She was feeling slightly improved. She was on acyclovir and was seen by the neurologist, and his note was pending. T-max is 98, pulse 64, blood pressure 117/79, respirations are 20. She was also asking for some Visine drops this morning which I will order as she was complaining of some itching and LP was done yesterday, and she is on acyclovir at this time. She does have severe penicillin allergy, she gave me history of anaphylaxis to it, so we have kept her off, and CSF was mostly lymphocytic. OBJECTIVE: VITAL SIGNS: On examination, vitals were stable. HEENT: Head was atraumatic. Eyes were unremarkable. NECK: Supple. LUNGS: Clear. HEART: S1, S2 regular. ABDOMEN: Soft, nontender. No guarding, no rigidity present. EXTREMITIES: Have no edema, and she said she was feeling more stable on her legs. She probably has viral meningitis as LP was 32. She also was having migraine. We are awaiting for the LP results and for the patient to get better and will follow the recommendations of the neurologist. We are still waiting for the labs to come from the CSF at this time, and we will follow. Marina Snyder MD
[2017-08-21] MEDS: Dextrose 5%/0.9% NS 1,000 ML IV SCH (06:45)
[2017-08-21 08:01] LABS: BASO # 0.1 K/uL (0.0-0.2); BASO % 1.2 % (0.0-2.0); EOS % 0.5 % (0.0-4.0); HEMOGLOBIN 11.5 g/dL (11.0-16.0); LYMPH # 1.9 K/uL (1.0-4.3); MEAN CELL VOLUME 81.1 fL (81.0-99.0); MEAN CORPUSCULAR HEMOGLOBIN 27.6 pg (27.0-31.0); MEAN PLATELET VOLUME 9.5 fL (7.2-11.7); MONO # 0.7 K/uL (0.0-0.8); MONO % 6.6 % (0.0-10.0); NEUT # 7.2 K/uL (1.8-7.0); NEUT % 72.7 % (50.0-75.0); RBC 4.18 Mil/uL (3.80-5.20); RED CELL DISTRIBUTION WIDTH 14.4 % (11.5-14.5)
[2017-08-21 08:04] LABS: WHITE BLOOD COUNT 9.9 K/uL (4.8-10.8)
[2017-08-21 08:22] LABS: ALBUMIN 3.7 g/dL (3.5-5.0); ALT/SGPT 234 U/L (9-52); AST/SGOT 127 U/L (14-36); BLOOD UREA NITROGEN 5 mg/dL (7-17); CALCIUM 8.6 mg/dl (8.6-10.4); GFR AFRICAN-AMERICAN > 60; GFR NON-AFRICAN AMERICAN > 60
[2017-08-21 08:35] VITALS: BP 142/95; PULSE 58; TEMP 98; O2SAT 100
--- NOTE | 2017-08-21 17:16 | CP.PCM.DIS ---
Provider - Provider Date of Admission: 08/19/17 14:18 Attending physician: Laith Barnes MD Consults: Dr. Nasrin Snyder Time Spent in preparation of Discharge (in minutes): 35 Diagnosis - Discharge Diagnosis (1) Abnormal LFTs (liver function tests) Status: Acute (2) Viral meningitis Status: Acute Priority: High Hospital Course - Lab Results Lab Results: Micro Results 08/19/17 15:16 Cerebral Spinal Fluid Gram Stain - Final 08/19/17 15:16 Cerebral Spinal Fluid CSF Culture - Preliminary NO GROWTH AFTER 2 DAYS 08/19/17 14:15 Blood-Venous Blood Culture - Preliminary NO GROWTH AFTER 24 HOURS 08/19/17 14:00 Blood-Venous Blood Culture - Preliminary NO GROWTH AFTER 24 HOURS Most Recent Lab Values WBC 9.9 K/uL (4.8-10.8) D 08/21/17 07:46 RBC 4.18 Mil/uL (3.80-5.20) 08/21/17 07:46 Hgb 11.5 g/dL (11.0-16.0) 08/21/17 07:46 Hct 33.9 % (34.0-47.0) L 08/21/17 07:46 MCV 81.1 fL (81.0-99.0) 08/21/17 07:46 MCH 27.6 pg (27.0-31.0) 08/21/17 07:46 MCHC 34.0 g/dL (33.0-37.0) 08/21/17 07:46 RDW 14.4 % (11.5-14.5) 08/21/17 07:46 Plt Count 440 K/uL (130-400) H 08/21/17 07:46 MPV 9.5 fL (7.2-11.7) 08/21/17 07:46 Neut % (Auto) 72.7 % (50.0-75.0) 08/21/17 07:46 Lymph % (Auto) 19.0 % (20.0-40.0) L 08/21/17 07:46 [place] % (Auto) 6.6 % (0.0-10.0) 08/21/17 07:46 Eos % (Auto) 0.5 % (0.0-4.0) 08/21/17 07:46 Baso % (Auto) 1.2 % (0.0-2.0) 08/21/17 07:46 Neut # (Auto) 7.2 K/uL (1.8-7.0) H 08/21/17 07:46 Lymph # (Auto) 1.9 K/uL (1.0-4.3) 08/21/17 07:46 [place] # (Auto) 0.7 K/uL (0.0-0.8) 08/21/17 07:46 Eos # (Auto) 0.0 K/uL (0.0-0.7) 08/21/17 07:46 Baso # (Auto) 0.1 K/uL (0.0-0.2) 08/21/17 07:46 PT 12.3 SECONDS (9.7-12.2) H 08/19/17 14:09 INR 1.1 08/19/17 14:09 APTT 28 SECONDS (21-34) 08/19/17 14:09 Sodium 140 mmol/L (132-148) 08/21/17 07:46 Potassium 4.1 mmol/L (3.6-5.2) 08/21/17 07:46 Chloride 103 mmol/L (98-107) 08/21/17 07:46 Carbon Dioxide 24 mmol/L (22-30) 08/21/17 07:46 Anion Gap 17 (10-20) 08/21/17 07:46 BUN 5 mg/dL (7-17) L 08/21/17 07:46 Creatinine 0.6 mg/dL (0.7-1.2) L 08/21/17 07:46 Est GFR ( Amer) > 60 08/21/17 07:46 Est GFR (Non-Af Amer) > 60 08/21/17 07:46 POC Glucose (mg/dL) 100 mg/dL (65-110) 08/19/17 13:08 Random Glucose 104 mg/dL (65-105) 08/21/17 07:46 Lactic Acid 1.1 mmol/L (0.7-2.1) 08/19/17 20:05 Calcium 8.6 mg/dl (8.6-10.4) 08/21/17 07:46 Total Bilirubin 0.5 mg/dL (0.2-1.3) 08/21/17 07:46 AST 127 U/L (14-36) H D 08/21/17 07:46 ALT 234 U/L (9-52) H D 08/21/17 07:46 Alkaline Phosphatase 86 U/L (38-126) 08/21/17 07:46 Total Protein 7.5 g/dL (6.3-8.3) 08/21/17 07:46 Albumin 3.7 g/dL (3.5-5.0) 08/21/17 07:46 Globulin 3.7 gm/dL (2.2-3.9) 08/21/17 07:46 Albumin/Globulin Ratio 1.0 (1.0-2.1) 08/21/17 07:46 Lipase 175 U/L (23-300) 08/19/17 14:09 Procalcitonin < 0.05 NG/ML (0.19-0.49) L 08/19/17 20:02 Urine Color Yellow (YELLOW) 08/20/17 02:00 Urine Clarity Clear (Clear) 08/20/17 02:00 Urine pH 7.0 (5.0-8.0) 08/20/17 02:00 Ur Specific [place] 1.009 (1.003-1.030) 08/20/17 02:00 Urine Protein Negative mg/dL (NEGATIVE) 08/20/17 02:00 Urine Glucose (UA) Negative mg/dL (Normal) 08/20/17 02:00 Urine Ketones Negative mg/dL (NEGATIVE) 08/20/17 02:00 Urine Blood Negative (NEGATIVE) 08/20/17 02:00 Urine Nitrate Negative (NEGATIVE) 08/20/17 02:00 Urine Bilirubin Negative (NEGATIVE) 08/20/17 02:00 Urine Urobilinogen Normal mg/dL (0.2-1.0) 08/20/17 02:00 Ur Leukocyte Esterase Negative Anthony/uL (Negative) 08/20/17 02:00 Urine WBC (Auto) 2 /hpf (0-5) 08/20/17 02:00 Urine RBC (Auto) < 1 /hpf (0-3) 08/20/17 02:00 Urine HCG, Qual Negative (NEGATIVE) 08/20/17 02:00 Fluid Type Spinal fluid 08/19/17 15:37 CSF Volume 2 mL (0-1) H 08/19/17 15:37 CSF Appearance Clear/colorless (CLEAR) 08/19/17 15:37 CSF WBC 32.0 /mm3 (0.0-5.0) H 08/19/17 15:37 CSF RBC 1.0 /mm3 (0.0-0.0) H 08/19/17 15:37 CSF Total Cell Counted TEST NOT PERFORMED 08/19/17 15:37 CSF Lymphocytes 85.0 % (0-0) H 08/19/17 15:37 CSF Monos/Macrophages 15 % (0-0) H 08/19/17 15:37 CSF Comment TEST NOT PERFORMED 08/19/17 15:37 CSF Glucose 44 mg/dL (40-70) 08/19/17 15:37 CSF Total Protein 95.0 mg/dL (12-60) H 08/19/17 15:37 CSF [place] IgG Ab 0.11 08/19/17 15:39 CSF [place] IgM Ab 0.01 08/19/17 15:39 Blood Type O POSITIVE 08/19/17 14:09 Antibody Screen Negative 08/19/17 14:09 - Hospital Course Hospital Course: Upon admission: Patient is a 41 year old female with PMHx heart murmur who presents to the ED after being sent from the [facility] for recent history of fever and new neurological symptoms. Patient traveled to [facility] 07/26-07/29 and during trip and on initial return to [place] felt normal at her baseline. Patient reports that on she began to have a fever, headache, and generalized malaise. She reports that her 12 year old daughter also had similar symptoms, but she recovered quickly. Patient went to [facility] on 08/12/17 due to continued fever and generalized weakness. Labwork done at [facility] showed low WBC count 2.2 and elevated LFTs. Patient was discharged home with supportive care. Patient presented to the [facility] at [facility] on 08/14/17 for follow up. She was referred to the ED during that encounter. Blood work done in the ED on 08/14/17 showed negative monospot, influenza, hepatitis, HIV, group A strep. LFTs were elevated but decreased as compared to studies from [facility]. Patient followed up with [facility] again on 08/15/17 with fever. Additional blood work studies were ordered at that time. Patient' s fever broke Friday08/15/17 and she reports feeling better overall since then. She reports that on Thursday 08/17 she began having blurred vision, feeling unsteady on her feet, and weakness. She also reports photophobia. She reports one episode of nausea with vomiting yesterday. She reports increased thirst for the past few days. Hospital Course: Patient was admitted to r/o meningitis. She was seen by Dr. Snyder (ID) 08/19 who recommended holding off on Rocephin due to pt's severe penicillin allergy and said to start patient on Acyclovir until HSV tests came back negative ( still pending, see below). Patient was also seen by Dr. Alexandra who agreed and gave the patient one dose of decadron 10 mg for the patients persistent headache. Tests and imaging that were ordered during stay are detailed below: EKG 08/19 showed sinus rhythm at 52bpm and no ST elevations. CXR 08/19 showed no consolidations. Brain MRI 08/19 showed no acute intracranial abnormality. Echo 08/19 showed mild UT and trace loculated posterior pericardial effusion. CSF collected in ED: * Appearance: clear/colorless * WBC: 32 (H) * RBC: 1 (H) * Lymphocytes: 85 (H) * Monos/Macrophages: 15 (H) * Glucose: 44 * Total Protein: 95 (H) * Cell count/Diff: pending * LDH: pending * [place] IgG and IgM Ab/RNA: 0.11 & 0.01/RNA pending * Enterovirus: pending * HSV 2 IgM: pending * HSV IgM, Ab: pending * HTLV I/II Ab: pending Procalcitonin < 0.05 Lactic acid: 1.1 Blood culture: negative Urine culture: pending Peripheral smear to r/o malaria: pending Patient was cleared for discharge per Dr. Barnes and consults. Patient was instructed to take Acyclovir 400 mg TID x7 days per Dr. Snyder, and follow up in the clinic downstairs for pending lab work. Discharge Exam - Head Exam Head Exam: ATRAUMATIC, NORMAL INSPECTION, NORMOCEPHALIC - Additional Findings Additional findings: - Constitutional Appears: Non-toxic, No Acute Distress - Eye Exam Eye Exam: Conjunctival injection, EOMI, Normal appearance, PERRL - ENT Exam ENT Exam: Mucous Membranes Moist - Neck Exam Neck Exam: Full ROM, Normal Inspection. absent: Meningismus - Respiratory Exam Respiratory Exam: Clear to Ausculation Bilateral, NORMAL BREATHING PATTERN - Cardiovascular Exam Cardiovascular Exam: REGULAR RHYTHM, +S1, +S2. absent: Murmur - GI/Abdominal Exam GI & Abdominal Exam: Soft, Normal Bowel Sounds. absent: Tenderness - Extremities Exam Extremities Exam: Normal Capillary Refill, Normal Inspection. absent: Calf Tenderness, Pedal Edema - Back Exam Back Exam: NORMAL INSPECTION. absent: rash noted - Neurological Exam Neurological Exam: Alert, Awake, Oriented x3 - Psychiatric Exam Psychiatric exam: Normal Affect, Normal Mood - Skin Skin Exam: Dry, Intact, Normal Color, Warm. absent: Rash Discharge Plan - Discharge Medications Prescriptions: Acyclovir 400 mg PO TID #21 tablet - Follow Up Plan Condition: GOOD Disposition: HOME/ ROUTINE Instructions: Viral Meningitis, Adult (DC), Nystagmus (DC), Fever in Adults ( GEN) Additional Instructions: Please follow up with the [facility] within 1 week of discharge to follow up on lab results. Please take Acyclovir 400 mg three times per day for 7 days. Referrals: [facility] [Outside]
== END 2017-08-21 14:50 | disposition home or self-care (01) | DRG 21 ==
LOC: C.ER 12:55 → C.9E 14:18 → C.6T 15:33
PROVIDERS: ADMIT Internal Medicine; ATTEND Internal Medicine
PROC: 009U3ZX Drainage of Spinal Canal, Percutaneous Approach, Diagnostic (ICD-10-PCS; principal; 2017-08-19)
DX: A87.9 Viral meningitis, unspecified (principal); D72.819 Decreased white blood cell count, unspecified; G43.909 Migraine, unspecified, not intractable, without status migrainosus; H55.00 Unspecified nystagmus; R79.89 Other specified abnormal findings of blood chemistry; Z88.0 Allergy status to penicillin